=== PATIENT | female | born 1935 | race Caucasian/White ===

== ENCOUNTER 2021-03-14 12:32 | Emergency (ER) | payer MEDICARE, OTHER ==
[2021-03-14 13:26] LABS: BASOPHIL 0.3 % (0-2); HCT 45.1 % (37.0-47.0); HGB 15.1 g/dl (12.5-16.0); LYMPHOCYTE 18.8 % (15-48); MCH 30.7 pg (25.0-31.0); MCHC 33.5 g/dL (32.0-36.0); MCV 91.7 fL (78.0-100.0); MONOCYTE 6.2 % (0-12); NEUTROPHIL 73.6 % (41-80); NRBC 0; PLT 268 K/uL (150-400); RBC 4.92 M/uL (4.20-5.40); RDW 12.1 % (11.5-14.0)
[2021-03-14 13:30] LABS: INR 1.03 (0.9-1.2); PROTHROMBIN TIME 12.9 SECONDS (11.8-13.4); PTT 27.5 SECONDS (24.4-34.7)
[2021-03-14 13:42] LABS: PRO-BNP 165 pg/mL (<450)
[2021-03-14 13:45] LABS: ALBUMIN 4.5 g/dL (3.4-5.0); BILIRUBIN - TOTAL 0.4 mg/dL (0.2-1.0); BUN/CREAT RATIO (CALC) 17.8 RATIO; CREATININE 0.73 mg/dL (0.51-0.95); GLOBULIN (CALCULATION) 3.6 g/dL; MAGNESIUM 2.1 mg/dL (1.8-2.4); POTASSIUM 3.7 mmol/L (3.5-5.1); TOTAL PROTEIN 8.1 g/dL (6.4-8.2)
[2021-03-14 13:50] LABS: LACTIC ACID 1.2 mmol/L (0.4-1.9)
[2021-03-14 14:52] LABS: BILIRUBIN NEGATIVE (NEGATIVE); BLOOD 2+ Ery/uL (NEGATIVE); CLARITY CLEAR (CLEAR); COLOR YELLOW (YELLOW); GLUCOSE (U) NORMAL (NORMAL); LEUKOCYTES 1+ Leu/uL (NEGATIVE); NITRITE NEGATIVE (NEGATIVE); PROTEIN NEGATIVE (NEGATIVE); SPECIFIC GRAVITY 1.015 (1.001-1.030); UROBILINOGEN 0.2 mg/dL (0.2-1.0); pH 6.5 (5.0-9.0)
[2021-03-14 15:09] LABS: BACTERIA 1+
[2021-03-14] MEDS ORDERED: NORVASC5 MG PO (16:06)
== END 2021-03-14 16:39 | disposition home or self-care (01) ==
LOC: FER 12:32
PROVIDERS: Emergency Medicine
DX: I10 Essential (primary) hypertension (principal); Z88.2 Allergy status to sulfonamides
CPT/HCPCS: 36415; 70450; 71045; 80053; 81001; 83605; 83735; 83880; 84145; 84443; 84484; 85025; 85610; 85730; 93005